=== PATIENT | female | born 1965 | race Caucasian/White ===

== ENCOUNTER 2023-04-29 11:58 | Emergency (ER) | payer BC, SELFPAY ==
[2023-04-29 12:02] VITALS: BP 148/80; PULSE 84; RESP 18; TEMP 37.2; O2SAT 100; BMI 27.3
--- NOTE | 2023-04-29 12:34 | ED.RECABL ---
HPI - Recheck/Abnormal Lab/Rx <Irene Kothari PA-C - Last Filed: 04/29/23 15:48> General Chief Complaint: Recheck/Abnormal Lab/Rx Stated Complaint: allergeric reaction medication Time Seen by Provider: 04/29/23 12:30 Source: patient Mode of arrival: Wheelchair History of Present Illness HPI narrative: Patient is a 57-year-old female who presents requesting a prescription for compounded Valium and diphenhydramine to treat mast cell activation syndrome. 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 She reports having several days with minimal sleep and then yesterday injuring her back, which caused her quite a bit of pain. She took leftover pain medication that she had at home and now feels as though her mast cell disorder is beginning to flare and she is worried that she will not have enough medication to treat it. She is allergic to most dyes and fillers and has to have her medications compounded. She presents today for medication refill. She is not currently having any shortness of breath, chest pain, nausea or vomiting or other symptoms. Related Data Previous Rx's Medication Instructions Recorded diphenhydramine HCl 50 mg capsule 50 mg PO QID PRN allergy symptoms 04/29/23 #30 caps Allergies Allergy/AdvReac Type Severity Reaction Status Date / Time Preservatives and dyes Allergy Swelling Uncoded 04/29/23 12:09 of Lip/Tongue/Throat Review of Systems <Irene Kothari PA-C - Last Filed: 04/29/23 15:48> Review of Systems ROS Unobtainable: All systems reviewed & are unremarkable except as noted in HPI and below Patient History <Irene Kothari PA-C - Last Filed: 04/29/23 15:48> Social History Smoking Status: Never smoker Smoking Status: Never smoker Substance Use Type: does not use Exam <Irene Kothari PA-C - Last Filed: 04/29/23 15:48> Narrative Exam Narrative: GENERAL: 57 year old patient appears stated age. Well-developed patient, in no distress. NEURO: AOx3. HEAD: Atraumatic. Normocephalic. EYES: Pupils equal round and reactive. Extraocular motions intact. No scleral icterus. No injection or drainage. ENT: Nose without bleeding or purulent drainage. Airway patent. RESPIRATORY: No distress or increased work of breathing EXTREMITIES: No edema or joint tenderness. SKIN: No rash or erythema of visible areas Initial Vital Signs Initial Vital Signs: Vital Signs Temperature 98.9 F 04/29/23 12:02 Pulse Rate 84 04/29/23 12:02 Respiratory Rate 18 04/29/23 12:02 Blood Pressure 148/80 H 04/29/23 12:02 Pulse Oximetry 100 04/29/23 12:02 Oxygen Delivery Method Room Air 04/29/23 12:02 <Jass Dong DO - Last Filed: 04/29/23 15:48> Initial Vital Signs Initial Vital Signs: Vital Signs Temperature 98.9 F 04/29/23 12:02 Pulse Rate 84 04/29/23 12:02 Respiratory Rate 18 04/29/23 12:02 Blood Pressure 148/80 H 04/29/23 12:02 Pulse Oximetry 100 04/29/23 12:02 Oxygen Delivery Method Room Air 04/29/23 12:02 Course <Irene Kothari PA-C - Last Filed: 04/29/23 15:48> Vital Signs Vital signs: Vital Signs - 8 hr 04/29/23 12:02 Temperature 98.9 F Pulse Rate 84 Respiratory Rate 18 Blood Pressure 148/80 H Pulse Oximetry 100 Oxygen Delivery Method Room Air <Jass Dong DO - Last Filed: 04/29/23 15:48> Vital Signs Vital signs: Vital Signs - 8 hr 04/29/23 12:02 Temperature 98.9 F Pulse Rate 84 Respiratory Rate 18 Blood Pressure 148/80 H Pulse Oximetry 100 Oxygen Delivery Method Room Air MDM - Recheck/Abnormal Lab/Rx <Irene Kothari PA-C - Last Filed: 04/29/23 15:48> MDM Narrative Medical decision making narrative: Discussed limitations of prescribing from the emergency room for nonacute medications. I will attempt to prescribe her diphenhydramine as a compounded medication; she will need to figure out where to get that filled and if it will be possible. I am not able to troubleshoot this with her over the phone if this does not work out. I will not be prescribing her Valium or other controlled substances. She states understanding and I gave her several references for establishing primary care. I encouraged her to do this as soon as possible so that she can also get a referral to a specialist for further evaluation and medication management. Patient's symptoms improved over duration of stay with above-stated therapies. Findings and discharge diagnosis discussed with patient/family followed by verbalization of understanding Return precautions discussed with patient/family whom verbalize understanding of diagnosis and plan Discharge Plan Departure Patient Disposition: Home Clinical Impression: Encounter for medication refill Instructions: Dos and Don'ts for Prescription Medications Activity Restrictions/Additional Instructions: * Diphenhydramine compound prescription written as per your request. I am sorry I can not refill your other medications today. I included some recommendations below. [facility] [phone] [facility] *What to do: *Please continue to take your regular medications as directed. [ ] New medication prescriptions sent to your pharmacy: [ ] [x] New medication written as a paper prescription [ ] No new medications given *Please follow up with your primary care provider in 2-3 days, call for an appointment. Let them know you were seen in the Emergency Department and that we ask that you be seen in follow up. We will electronically transmit a record of today's note if your PCP is in our system *If you do not have a primary care provider please contact the [facility] Resource line at [phone]. They will ask some questions about your medical history and help get you set up with a doctor in the community. *Return to Emergency Department if you should have any new, worsening or concerning symptoms, such as [fever greater than 101 F, shaking chills, worsening pain, persistent vomiting or other concerning symptoms]. Prescriptions: New diphenhydramine HCl 50 mg capsule 50 mg PO QID PRN (Reason: allergy symptoms) Qty: 30 2RF Rx Instructions: please compound per patient requirements without dyes, fillers, etc Referrals: Miscellaneous,Doctor, MD [Primary Care Provider] - Stand Alone Forms: Patient Portal/API ED Sign-out <Jass Dong DO - Last Filed: 04/29/23 15:48> Cosign [facility] Attestation: Dr Dong Co-Sign Statement: I was available for consultation during this patient's emergency department visit. This chart is signed by myself for administrative purposes only. I did not have direct contact with this patient during this visit. They were seen independently by the APC.
== END 2023-04-29 13:07 | disposition home or self-care (01) ==
PROVIDERS: Emergency Provider Physician Assistant
DX: Z76.0 Encounter for issue of repeat prescription (principal); D89.40 Mast cell activation, unspecified
CPT/HCPCS: 99281

== ENCOUNTER 2023-08-14 10:36 | Emergency (ER) | payer OTHER, SELFPAY ==
[2023-08-14] VITALS (12 sets, daily range): BP systolic 135–180; BP diastolic 76–96; PULSE 70–105; RESP 15; TEMP 37.1; O2SAT 97–100; BMI 30.4
--- NOTE | 2023-08-14 10:53 | ED.ALLEREA ---
HPI - Allergic Reaction General Chief complaint: Allergic Reaction Stated complaint: allergic reaction Time Seen by Provider: 08/14/23 10:48 Source: patient Mode of arrival: Ambulatory History of Present Illness HPI narrative: Patient is a 57-year-old female. 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 Here for evaluation of feeling very itchy and anxious. States she feels dehydrated. Also having palpitations. Is also dizzy. She states that she normally takes Benadryl and famotidine for her symptoms. She states she feels like she can not get the symptoms under control with her oral medications. Also feels like her abdomen is distended. Is feeling nauseous. She normally takes famotidine for the nausea. Related Data Previous Rx's Medication Instructions Recorded diphenhydramine HCl 50 mg capsule 50 mg PO QID PRN allergy symptoms 04/29/23 #30 caps methylprednisolone 4 mg tablets in See Rx Instructions PO .COMPLEX 08/14/23 a dose pack (Medrol (Delmer)) #21 ea Allergies Allergy/AdvReac Type Severity Reaction Status Date / Time Preservatives and dyes Allergy Swelling Uncoded 08/14/23 10:48 of Lip/Tongue/Throat Review of Systems Constitutional Constitutional: Reports system reviewed and no additional complaints, except as documented Cardiovascular Cardiovascular: Reports system reviewed and no additional complaints, except as documented Respiratory Respiratory: Reports system reviewed and no additional complaints, except as documented Gastrointestinal Gastrointestinal: Reports system reviewed and no additional complaints, except as documented Integumentary/Breasts Skin/Breast: Reports system reviewed and no additional complaints, except as documented Neurologic Neurologic: Reports system reviewed and no additional complaints, except as documented Hematologic/Lymphatic On Anticoagulants: No Patient History Social History Smoking Status: Never smoker Smoking Status: Never smoker alcohol intake frequency: holidays/special occasions only Substance Use Type: does not use Exam Initial Vital Signs Initial Vital Signs: Vital Signs Temperature 98.8 F 08/14/23 10:37 Pulse Rate 105 H 08/14/23 10:37 Respiratory Rate 15 08/14/23 10:37 Blood Pressure 180/96 H 08/14/23 10:37 Pulse Oximetry 97 08/14/23 10:37 Oxygen Delivery Method Room Air 08/14/23 10:37 Const General: cooperative, comfortable and No ill appearing [facility] Head: normal to inspection and normocephalic Resp Effort & Inspection: normal respiratory effort Auscultation: clear to auscultation bilaterally Cardio Rate: regular rate Rhythm: regular rhythm GI Inspection: normal to inspection Palpation: soft Neuro General: patient alert, patient awake and patient oriented x3 Extrem General: normal to inspection Psych Other: Anxious affect Course Orders Ordered: ED Orders 08/14/23 10:47 Complete Blood Count AUTO DIFF Stat Comprehensive Metabolic Panel Stat Lipase Stat 08/14/23 11:07 Covid-19 + FLU A/B + RSV - PCR Stat Discontinued Medications Diphenhydramine HCl (Diphenhydramine 50 Mg/Ml Vial) 25 mg IV NOW ONE Stop: 08/14/23 10:54 Last Admin: 08/14/23 11:00 Dose: 25 mg Documented By: ALFONSO Diphenhydramine HCl (Diphenhydramine 50 Mg/Ml Vial) 25 mg IV NOW ONE Stop: 08/14/23 13:20 Last Admin: 08/14/23 13:27 Dose: 25 mg Documented By: TONY Famotidine (Famotidine 20 Mg/2 Ml Vial) 20 mg IV NOW RADHA Last Admin: 08/14/23 11:00 Dose: 20 mg Documented By: ALFONSO Sodium Chloride (Normal Saline 0.9%) 1,000 mls @ 1,000 mls/hr IV BOLUS ONE Stop: 08/14/23 12:00 Last Infusion: 08/14/23 13:47 Dose: Infused Documented By: Admin: 08/14/23 11:04 Dose: 1,000 mls/hr Documented By: ALFONSO Methylprednisolone (Methylprednisolone 125 Mg/2 Ml Vial) 125 mg IV NOW ONE Stop: 08/14/23 13:20 Last Admin: 08/14/23 13:27 Dose: 125 mg Documented By: TONY Vital Signs Vital signs: Vital Signs - 8 hr 08/14/23 10:37 08/14/23 10:43 08/14/23 11:00 Temperature 98.8 F Pulse Rate 105 H 105 H 84 Respiratory Rate 15 Blood Pressure 180/96 H Pulse Oximetry 97 98 97 Oxygen Delivery Method Room Air 08/14/23 11:19 08/14/23 11:19 08/14/23 11:25 Temperature Pulse Rate 93 H Respiratory Rate Blood Pressure 154/84 H 146/79 H Pulse Oximetry 98 Oxygen Delivery Method 08/14/23 11:25 08/14/23 11:30 08/14/23 11:30 Temperature Pulse Rate 89 79 Respiratory Rate Blood Pressure 145/76 H Pulse Oximetry 97 97 Oxygen Delivery Method 08/14/23 12:00 08/14/23 12:00 08/14/23 12:30 Temperature Pulse Rate 76 76 Respiratory Rate Blood Pressure 148/76 H Pulse Oximetry 98 99 Oxygen Delivery Method 08/14/23 13:00 08/14/23 13:16 08/14/23 13:16 Temperature Pulse Rate 71 70 Respiratory Rate Blood Pressure 135/81 Pulse Oximetry 99 98 Oxygen Delivery Method Room Air 08/14/23 13:30 08/14/23 13:31 08/14/23 13:31 Temperature Pulse Rate 76 73 Respiratory Rate Blood Pressure 167/90 H Pulse Oximetry 99 100 Oxygen Delivery Method Room Air MDM - Allergic Reaction Lab Data 08/14/23 10:47 08/14/23 10:47 Labs: Lab Results 08/14/23 08/14/23 Range/Units 10:47 11:07 WBC 7.5 (4.5-11.0) X10^3/uL RBC 4.43 (4.0-5.2) X10^6/uL Hgb 14.4 (12.0-16.0) g/dL Hct 42.3 (36-46) % MCV 95.4 (80-100) fL MCH 32.4 (26-34) PG MCHC 34.0 (30-36) % RDW 14.2 (11.6-14.8) % Plt Count 172 (150-400) X10^3/uL Neut % (Auto) 62.4 (50-75) % Lymph % (Auto) 28.2 (25-40) % [place] % (Auto) 8.7 (3-14) % Eos % (Auto) 0.1 L (2-4) % Baso % (Auto) 0.6 (0-2) % Neut # (Auto) 4700 (4836-7846) /uL Lymph # (Auto) 2100 (5572-6304) /uL [place] # (Auto) 700 (0-900) /uL Eos # (Auto) 0 (0-450) /uL Baso # (Auto) 0 (0-100) /uL Sodium 137 (137-145) mmol/L Potassium 4.3 (3.4-5.1) mmol/L Chloride 100 (98-107) mmol/L Carbon Dioxide 24 (22-32) mmol/L BUN 11 (7-17) mg/dL Creatinine 0.73 (0.52-1.04) mg/dL Estimated GFR > 60 (>60) mL/min BUN/Creatinine Ratio 15.1 (6-22) Glucose 128 H (70-100) mg/dL Calcium 10.1 (8.4-10.2) mg/dL Total Bilirubin 1.1 (0.2-1.3) mg/dL AST 24 (14-36) IU/L ALT 24 (<35) IU/L Alkaline Phosphatase 54 (38-126) U/L Total Protein 8.4 H (6.3-8.2) g/dL Albumin 5.1 H (3.5-5.0) g/dL Globulin 3.3 (1.7-4.1) g/dL Albumin/Globulin Ratio 1.5 (1.0-2.8) Lipase 121 (23-300) U/L SARS-CoV-2 (PCR) Negative (Negative) Influenza A (RT-PCR) Flu a negative (NEGATIVE) Influenza B (RT-PCR) Flu b negative (NEGATIVE) RSV (PCR) Negative (Negative) MDM Narrative Medical decision making narrative: Patient is not hypotensive. Not tachycardic. Not vomiting. She has not having an anaphylactic reaction. No overt signs of a rash. Her symptoms are subjective. Was given Benadryl and famotidine. She reports minimal improvement. She states that another dose of Benadryl and sometimes steroids will be helpful. She was given Solu-Medrol and another dose of Benadryl here in the ER. She states that a Medrol Dosepak has been helpful in the past but this needs to be compounded. A prescription was written for her that she can take to a compounding pharmacy. No indication for admission to the hospital. No indication for epinephrine. Will discharge patient home with return precautions. Discharge Plan Departure Patient Disposition: Home Clinical Impression: Pruritus Instructions: DI for Itching Activity Restrictions/Additional Instructions: Recommend that you continue to take all of your medications as directed. Contact your primary doctor for follow-up. Return to the emergency department for new symptoms. Prescriptions: New methylprednisolone [Medrol (Delmer)] 4 mg tablets,dose pack See Rx Instructions .ROUTE .COMPLEX Qty: 21 0RF Rx Instructions: orally per package directions No Action diphenhydramine HCl 50 mg capsule 50 mg PO QID PRN (Reason: allergy symptoms) Qty: 30 2RF Rx Instructions: please compound per patient requirements without dyes, fillers, etc Referrals: Miscellaneous,Doctor, MD [Primary Care Provider] - Stand Alone Forms: Patient Portal/API
[2023-08-14 10:57] LABS: Add Manual Diff / Slide Review NO; Basophils Absolute Auto 0 /uL (0-100); Basophils Percent Auto 0.6 % (0-2); Eosinophils Absolute Auto 0 /uL (0-450); Eosinophils Percent Auto 0.1 % (2-4); Hematocrit 42.3 % (36-46); Hemoglobin 14.4 g/dL (12.0-16.0); Lymphocytes Absolute Auto 2100 /uL (1100-4500); Lymphocytes Percent Auto 28.2 % (25-40); Mean Corpuscular Hemoglobin 32.4 PG (26-34); Mean Corpuscular Volume 95.4 fL (80-100); Monocytes Absolute Auto 700 /uL (0-900); Monocytes Percent Auto 8.7 % (3-14); Neutrophils Absolute Auto 4700 /uL (1500-7000); Neutrophils Percent Auto 62.4 % (50-75); Platelet Count 172 X10^3/uL (150-400); Red Blood Cell Count 4.43 X10^6/uL (4.0-5.2); Red Cell Distribution Width 14.2 % (11.6-14.8); White Blood Cell Count 7.5 X10^3/uL (4.5-11.0)
[2023-08-14] MEDS: FAMOTIDINE 20 MG/2 ML VIAL IV (11:00)
[2023-08-14] MEDS: diphenhydrAMINE 50 MG/ML VIAL 25 MG IV ×2 (11:00→13:27)
[2023-08-14] MEDS: SODIUM CHLORIDE 0.9% 1,000 ML 1000 ML IV (11:04)
[2023-08-14 11:09] LABS: Alanine Aminotransferase 24 IU/L (<35); Albumin 5.1 g/dL (3.5-5.0); Albumin Globulin Ratio 1.5 (1.0-2.8); Alkaline Phosphatase 54 U/L (38-126); Aspartate Aminotransferase 24 IU/L (14-36); BUN Creatinine Ratio 15.1 (6-22); Bilirubin Total 1.1 mg/dL (0.2-1.3); Blood Urea Nitrogen 11 mg/dL (7-17); Calcium 10.1 mg/dL (8.4-10.2); Carbon Dioxide 24 mmol/L (22-32); Chloride 100 mmol/L (98-107); Estimated Glomerular Filt Rate > 60 mL/min (>60); Globulin 3.3 g/dL (1.7-4.1); Glucose 128 mg/dL (70-100); HEMOLYSIS < 15 (0-50); Lipase 121 U/L (23-300); Potassium 4.3 mmol/L (3.4-5.1); Sodium 137 mmol/L (137-145); Total Protein 8.4 g/dL (6.3-8.2)
[2023-08-14 11:51] LABS: COVID-19 CEPHEID 4-PLEX PCR Negative (Negative); Influenza A - CEPHEID Flu A NEGATIVE (NEGATIVE); Influenza B - CEPHEID Flu B NEGATIVE (NEGATIVE); Respiratory Syncytial Virus Negative (Negative)
--- NOTE | 2023-08-14 12:25 | PC.NURSE ---
1100: Before meds administered, pt reports she can only have preservative free medications due to her mast cell disease. Call placed to pharmacy, spoke to Albina, pharmacist who stated single use vials are preservative free. Administered without complications/reaction. 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 Advised to give the medications some time. Dr Dong aware. Fluids continue to infuse. 1215: Pt agitated due to only receiving 25mg benadryl. Requesting more benadryl, and wants steroids and valium. Advised MD order needed. Dr Dong made aware. States she still feels like her heart is racing. 94 NSR on cardiac monitoring. OOB to bathroom without complication.
[2023-08-14] MEDS: methylPREDNISolone 125 MG/2 ML VIAL IV (13:27)
== END 2023-08-14 13:58 | disposition home or self-care (01) ==
PROVIDERS: Emergency Provider Emergency Medicine
DX: L29.9 Pruritus, unspecified (principal); R00.2 Palpitations; Z20.822 Contact with and (suspected) exposure to COVID-19
CPT/HCPCS: 0241U; 36415; 80053; 83690; 85025; 96361; 96374; 96375; 96376; 99284; J1200; J2930

== ENCOUNTER → 2023-11-19 11:17 | Outpatient (CLI) | payer OTHER, SELFPAY ==
[2023-11-19 12:24] LABS: Add Manual Diff / Slide Review NO; Basophils Absolute Auto 0 /uL (0-100); Basophils Percent Auto 0.2 % (0-2); Eosinophils Absolute Auto 0 /uL (0-450); Eosinophils Percent Auto 0.1 % (2-4); Hematocrit 39.4 % (36-46); Hemoglobin 13.4 g/dL (12.0-16.0); Lymphocytes Absolute Auto 2200 /uL (1100-4500); Lymphocytes Percent Auto 34.9 % (25-40); Mean Corpuscular HGB Conc 33.9 % (30-36); Mean Corpuscular Volume 97.2 fL (80-100); Monocytes Absolute Auto 600 /uL (0-900); Monocytes Percent Auto 9.5 % (3-14); Neutrophils Absolute Auto 3400 /uL (1500-7000); Neutrophils Percent Auto 55.3 % (50-75); Platelet Count 142 X10^3/uL (150-400); Red Blood Cell Count 4.06 X10^6/uL (4.0-5.2); Red Cell Distribution Width 13.7 % (11.6-14.8); White Blood Cell Count 6.2 X10^3/uL (4.5-11.0)
[2023-11-19 13:03] LABS: Alanine Aminotransferase 18 IU/L (<35); Albumin Globulin Ratio 2.1 (1.0-2.8); Alkaline Phosphatase 68 U/L (38-126); Aspartate Aminotransferase 20 IU/L (14-36); BUN Creatinine Ratio 18.2 (6-22); Bilirubin Total 0.8 mg/dL (0.2-1.3); Blood Urea Nitrogen 14 mg/dL (7-17); Calcium 9.6 mg/dL (8.4-10.2); Carbon Dioxide 26 mmol/L (22-32); Chloride 105 mmol/L (98-107); Estimated Glomerular Filt Rate > 60 mL/min (>60); Globulin 2.4 g/dL (1.7-4.1); Glucose 86 mg/dL (70-100); HEMOLYSIS < 15 (0-50); Potassium 4.5 mmol/L (3.4-5.1); Sodium 139 mmol/L (137-145); Total Protein 7.4 g/dL (6.3-8.2)
[2023-11-19 14:48] LABS: Vitamin D 25 Hydroxy (D3) 20.4 ng/mL (30.0-100.0)
== END ==
DX: D89.40 Mast cell activation, unspecified (principal); R09.81 Nasal congestion; R53.83 Other fatigue
CPT/HCPCS: 36415; 80053; 82306; 83088; 83520; 85025; 86316